=== PATIENT | male | born 1995 | race Hispanic/Latino ===

== ENCOUNTER 2017-01-08 05:40 | Emergency (ER) | payer OTHER ==
[2017-01-08 05:57] VITALS: BP 116/71; PULSE 65; RESP 18; TEMP 98.1; O2SAT 99
--- NOTE | 2017-01-08 06:18 | ED PDOC ---
Lower Extremity Pain/Injury Time Seen by Provider: 01/08/17 05:40 Chief Complaint (Nursing): Lower Extremity Problem/Injury Chief Complaint (Provider): left ankle pain History Per: Patient History/Exam Limitations: no limitations Onset/Duration Of Symptoms: Sudden Onset Current Symptoms Are (Timing): Still Present Additional Complaint(s): 21yo male with no PMHx presents to the ED with c/o left ankle pain s/p attempting to do back flip last night and injuring his left ankle. Patient took 2 advil at 0500 with minimal relief. Denies any other medical complaints. Past Medical History Reviewed: Historical Data, Nursing Documentation, Vital Signs Vital Signs: Last Vital Signs Temp 98.1 F 01/08/17 05:55 Pulse 65 01/08/17 05:55 Resp 18 01/08/17 05:55 BP 116/71 01/08/17 05:55 Pulse Ox 99 01/08/17 05:55 - Medical History PMH: No Chronic Diseases - Surgical History Surgical History: No Surg Hx - Family History Family History: States: No Known Family Hx - Social History Current smoker - smoking cessation education provided: No Alcohol: Occasional Drugs: Cannabis (occasional ) - Allergies Allergies/Adverse Reactions: Allergies Allergy/AdvReac Type Severity Reaction Status Date / Time No Known Allergies Allergy Verified 01/08/17 05:55 Review of Systems ROS Statement: Except As Marked, All Systems Reviewed And Found Negative Musculoskeletal: Positive for: Other (left ankle pain ) Physical Exam - Reviewed Nursing Documentation Reviewed: Yes Vital Signs Reviewed: Yes - Physical Exam Appears: Positive for: Well, No Acute Distress Head Exam: Positive for: ATRAUMATIC, NORMAL INSPECTION, NORMOCEPHALIC Skin: Positive for: Normal Color, Warm, Dry Extremity: Positive for: Normal ROM, Capillary Refill (less than 2 seconds ), Other (neurovascularly intact ). Negative for: Tenderness, Deformity, Swelling Neurologic/Psych: Positive for: Alert, Oriented - ECG O2 Sat by Pulse Oximetry: 99 Pulse Ox Interpretation: Normal (RA) Medical Decision Making Medical Decision Makin: Impression: left ankle pain, r/o fracture Plan: XR left ankle and foot reassess Patient xrays negative to follow up with podiatry/orthopedics as instructed fatoumata bandage ordered return to ED with any worsening or concerning symptoms. Scribe Attestation: Documented by Deven Roberto acting as a scribe for Radu Burrows MD. Provider Scribe Attestation: All medical record entries made by the Scribe were at my direction and personally dictated by me. I have reviewed the chart and agree that the record accurately reflects my personal performance of the history, physical exam, medical decision making, and the department course for this patient. I have also personally directed, reviewed, and agree with the discharge instructions and disposition. Disposition - Clinical Impression Clinical Impression: Ankle pain, Ankle sprain and strain - Patient ED Disposition Is Patient to be Admitted: Transfer of Care Counseled Patient/Family Regarding: Studies Performed, Diagnosis, Need For Followup - Disposition Referrals: [facility] [Outside] [facility] [Outside] Amada Alvarado MD [Staff Provider] - Disposition: Routine/Home Disposition Time: 07:00 Condition: GOOD Additional Instructions: follow up with podiatry for further evaluation return to the ED with any worsening or concerning symptoms. Instructions: Ankle Sprain (ED), Crutch Instructions (ED) Patient Signed Over To: Emiliano Mahan Handoff Comments: pending [facility] XR readings
--- NOTE | 2017-01-08 12:10 | RAD ---
PROCEDURE: Left Ankle Radiographs. HISTORY: ankle pain COMPARISON: None FINDINGS: BONES: Normal. No fracture. JOINTS: Normal. No osteoarthritis. Ankle mortise maintained. Talar dome intact SOFT TISSUES: Normal. OTHER FINDINGS: None. IMPRESSION: No significant or acute findings to account for/ related to the clinical presentation.
--- NOTE | 2017-01-08 12:11 | RAD ---
PROCEDURE: Left Foot Radiographs. HISTORY: foot pain COMPARISON: None. FINDINGS: BONES: Normal. No fracture. JOINTS: Normal. SOFT TISSUES: Normal. OTHER FINDINGS: None. IMPRESSION: Unremarkable left foot radiographs.
== END 2017-01-08 07:25 | disposition home or self-care (01) ==
LOC: H.ER 05:40
DX: M25.572 Pain in left ankle and joints of left foot (principal); M79.672 Pain in left foot; X50.9XXA Other and unspecified overexertion or strenuous movements or postures, initial encounter; Y92.89 Other specified places as the place of occurrence of the external cause